=== PATIENT | male | born 1950 | race Caucasian/White ===

== ENCOUNTER → 2023-02-03 08:24 | Outpatient (BNVA) | payer MEDICARE, BC, OTHER, SELFPAY | PROVIDERS: PCP Family Medicine; Referring Provider Family Medicine; Visit Provider Psychiatry & Neurology Neurology | DX: R26.89 Other abnormalities of gait and mobility (principal); G25.0 Essential tremor; K59.00 Constipation, unspecified | CPT/HCPCS: 99204 ==

== ENCOUNTER → 2023-04-07 10:12 | Outpatient (BNVA) | payer MEDICARE, BC, OTHER, SELFPAY | PROVIDERS: PCP Family Medicine; Referring Provider Family Medicine; Visit Provider Psychiatry & Neurology Neurology | DX: R26.89 Other abnormalities of gait and mobility (principal); R29.6 Repeated falls; G25.0 Essential tremor; K59.00 Constipation, unspecified; R41.3 Other amnesia | CPT/HCPCS: 99215 ==

== ENCOUNTER → 2023-06-09 10:45 | Outpatient (BNVA) | payer MEDICARE, BC, OTHER, SELFPAY | PROVIDERS: PCP Family Medicine; Referring Provider Family Medicine; Visit Provider Psychiatry & Neurology Neurology | DX: G20 Parkinson's disease (principal); G25.0 Essential tremor; K59.00 Constipation, unspecified; I12.9 Hypertensive chronic kidney disease with stage 1 through stage 4 chronic kidney disease, or unspecified chronic kidney disease; E11.9 Type 2 diabetes mellitus without complications; N18.9 Chronic kidney disease, unspecified | CPT/HCPCS: 99214 ==

== ENCOUNTER 2023-07-07 14:00 | Outpatient (CLI) | payer MEDICARE, BC, OTHER, SELFPAY ==
[2023-07-08 18:44] LABS: PSA, Ultrasensitive <0.01 ng/mL (<= 6.5)
[2023-07-11 02:26] LABS: Testosterone, Total 307 ng/dL (240-950)
== END 2023-07-07 14:01 | disposition home or self-care (01) ==
LOC: LBO 14:00
PROVIDERS: PCP Family Medicine; Visit Provider Radiology Radiation Oncology
DX: C61 Malignant neoplasm of prostate (principal)
CPT/HCPCS: 36415; 84153; 84403

== ENCOUNTER → 2023-12-16 09:17 | Outpatient (BNVA) | payer MEDICARE, BC, OTHER, SELFPAY | PROVIDERS: PCP Family Medicine; Referring Provider Family Medicine; Visit Provider Psychiatry & Neurology Neurology | DX: G25.0 Essential tremor; K59.00 Constipation, unspecified | CPT/HCPCS: 99215 ==

== ENCOUNTER 2023-12-16 14:20 | Outpatient (CLI) | payer MEDICARE, BC, OTHER, SELFPAY ==
[2023-12-19 16:03] LABS: Testosterone, Total 339 ng/dL (240-950)
== END 2023-12-16 14:21 | disposition home or self-care (01) ==
LOC: LBO 12-25 14:20
PROVIDERS: PCP Family Medicine; Visit Provider Nurse Practitioner Family
DX: C61 Malignant neoplasm of prostate (principal)
CPT/HCPCS: 36415; 84403; 99215

== ENCOUNTER 2024-01-08 15:26 | Outpatient (CLI) | payer MEDICARE, BC, OTHER, SELFPAY ==
[2024-01-12 12:59] LABS: PSA, Ultrasensitive <0.01 ng/mL (<= 6.5)
== END 2024-01-08 15:27 | disposition home or self-care (01) ==
LOC: LBO 15:27
PROVIDERS: PCP Family Medicine; Visit Provider Nurse Practitioner Family
DX: C61 Malignant neoplasm of prostate (principal)
CPT/HCPCS: 36415; 84153

== ENCOUNTER → 2024-05-04 13:16 | Outpatient (BNVA) | payer MEDICARE, BC, OTHER, SELFPAY | PROVIDERS: PCP Family Medicine; Referring Provider Family Medicine; Visit Provider Psychiatry & Neurology Neurology | DX: G25.0 Essential tremor (principal); K59.00 Constipation, unspecified | CPT/HCPCS: 99214 ==

== ENCOUNTER 2024-07-20 13:44 | Outpatient (CLI) | payer MEDICARE, BC, OTHER, SELFPAY ==
[2024-07-22 10:57] LABS: PSA, Ultrasensitive <0.01 ng/mL (<= 6.5)
== END 2024-07-20 13:45 | disposition home or self-care (01) ==
LOC: LBO 13:45
PROVIDERS: PCP Family Medicine; Visit Provider Physician Assistant
DX: C61 Malignant neoplasm of prostate (principal)
CPT/HCPCS: 36415; 84153

== ENCOUNTER → 2024-11-02 12:15 | Outpatient (BNVA) | payer MEDICARE, OTHER, SELFPAY | PROVIDERS: PCP Family Medicine; Visit Provider Psychiatry & Neurology Neurology | DX: G25.0 Essential tremor (principal); K59.00 Constipation, unspecified | CPT/HCPCS: 99214 ==

== ENCOUNTER → 2025-03-22 12:12 | Outpatient (BNVA) | payer MEDICARE, OTHER, SELFPAY | PROVIDERS: PCP Family Medicine; Visit Provider Psychiatry & Neurology Neurology | DX: G20.C Parkinsonism, unspecified (principal); R29.6 Repeated falls; E11.59 Type 2 diabetes mellitus with other circulatory complications; I10 Essential (primary) hypertension; N18.9 Chronic kidney disease, unspecified | CPT/HCPCS: 99214 ==

== ENCOUNTER → 2025-04-21 15:26 | Outpatient (BNVA) | payer MEDICARE, OTHER, SELFPAY | PROVIDERS: PCP Family Medicine; Referring Provider Family Medicine; Visit Provider Psychiatry & Neurology Neurology | DX: G20.C Parkinsonism, unspecified (principal); G25.0 Essential tremor; R29.6 Repeated falls; E11.59 Type 2 diabetes mellitus with other circulatory complications; E11.22 Type 2 diabetes mellitus with diabetic chronic kidney disease; I10 Essential (primary) hypertension; N18.9 Chronic kidney disease, unspecified | CPT/HCPCS: 99214 ==

== ENCOUNTER 2025-08-01 18:31 | Outpatient (REF) | payer MEDICARE, OTHER, SELFPAY ==
[2025-08-01 16:10] LABS: HCT 32.6 % (40.0-50.0); HGB 10.4 g/dL (13.5-17.5); MCH 31.0 pg (27.0-33.0); MCHC 31.9 % (32.0-36.0); MCV 97 fL (80-95); MPV 11.0 fL (8.0-11.0); Platelet Count 341 10^3/uL (130-400); RBC 3.35 10^6/uL (4.36-5.78); RDW 14.5 % (11.8-14.1); RDW-SD 51.1 fL; WBC 6.24 10^3/uL (4.4-10.8)
[2025-08-01 16:21] LABS: Uric Acid 3.3 mg/dL (3.7-9.2)
[2025-08-01 16:24] LABS: ALT 28 U/L (10-49); AST 18 U/L (<34); Albumin 3.6 g/dL (3.4-5.0); Alkaline Phosphatase 75 U/L (46-116); Anion Gap 7.6 mmol/L (3-11); BUN 15 mg/dL (9-23); Bilirubin, Total 0.50 mg/dL (0.2-1.2); CO2 27.4 mmol/L (20.0-31.0); Calcium 9.4 mg/dL (8.3-10.6); Chloride 106 mmol/L (98-107); Glucose 102 mg/dL (74-106); Potassium 4.7 mmol/L (3.5-5.1); Sodium 141 mmol/L (136-145); Total Protein 6.1 g/dL (5.7-8.2)
[2025-08-01 16:25] LABS: TSH 9.32 uIU/mL (0.55-4.78)
== END 2025-08-01 18:32 | disposition home or self-care (01) ==
LOC: LBN 18:31
PROVIDERS: PCP Family Medicine; Visit Provider Family Medicine
DX: E03.9 Hypothyroidism, unspecified (principal); N18.2 Chronic kidney disease, stage 2 (mild); D64.9 Anemia, unspecified; Z87.39 Personal history of other diseases of the musculoskeletal system and connective tissue
CPT/HCPCS: 80053; 85027; 84443; 84550

== ENCOUNTER 2025-08-10 11:37 | Outpatient (REF) | payer MEDICARE, OTHER, SELFPAY | END 2025-08-10 11:38 | disposition home or self-care (01) | LOC: LBN 11:37 | PROVIDERS: PCP Family Medicine; Visit Provider Physician Assistant | DX: Z85.46 Personal history of malignant neoplasm of prostate (principal) | CPT/HCPCS: 84153 ==